=== PATIENT | female | born 1995 | race Caucasian/White ===

== ENCOUNTER 2018-05-22 20:23 | Inpatient (IN) | payer MEDICAID ==
[2018-05-22 21:34] LABS: PLATELET COUNT 241 10^3/uL (150-400)
[2018-05-22] MEDS ORDERED: MAGNESIUM SULF 4 GM/WATER 100 ML IV ONE (21:58)
[2018-05-22] MEDS ORDERED: CALCIUM GLUC 10% 1 GM/10 ML VIAL IVP PRN (21:58)
[2018-05-22] MEDS ORDERED: LR 500 ML IV ONE (22:25)
[2018-05-22] MEDS ORDERED: ceFAZolin 2 GM/DEXTROSE 100 ML IV ONE (22:25)
--- NOTE | 2018-05-22 22:45 | PDGENHP ---
History and Physical - Chief Complaint high blood pressure - History of Present Illness 22 at 37w2d by LMP C/w first trimester US done at [facility]. Here for elevated BPs (called about losing her mucous plug but mentioned high BPs). Went to [facility] ED this morning for a rash on her scalp, was told she had a BP of 180 over ? initially, then her dc paper work had 158/105, 156/ 110 written on it, and it was printed at 10:07 this morning. She relates she was told to keep her OB appointment in 2 days. Good FM, no VB, no LOF. Currently - no VENEGAS, no vis changes, no epigastric pain. Denies drug use in . Had pos THC early in preg. Consents to U tox today. care at [facility] since 15 weeks - first trimester visit was at [facility]. course uncomplicated. Desires repeat C/S. POB: 10/2010 at age 16, had primary LTCS at 41+ weeks, 7#6oz after IOL and intolerance of labor labs: O pos 1 hour gluc 80 before 20 weeks 28 wk GTT 106 11.7/36.2 GBS neg History Information - Allergies/Home Medication List Allergies/Adverse Reactions: No Known Allergies Allergy (Unverified 05/22/18 20:52) I have personally reviewed and updated: family history, medical history, social history, surgical history Past Medical History: hx of depression. obesity - Past Medical History Additional medical history: scoliosis. hx of pp depression - Surgical History Additional surgical history: 2012 low transverse C/S - Family History Additional family history: son with asthma - Social History Smoking Status: Former smoker Alcohol Use: None Drug Use: None Additional social history: FOC not involved - her motherAmee here for support Review of Systems Review of Systems: ROS: 10pt was reviewed & negative except for what was stated in HPI & below Physical Exam Physical Exam: gen - pleasant, gravid, NAD FHR 120 reactive toco - occas ctxn 36.6 18 125 176/120 repeat 144/84, over the past hour - 130-150s / 70-100 Constitutional: no apparent distress, appears nourished, not in pain Eyes: PERRL, anicteric sclera, EOMI Ears, Nose, Mouth, Throat: moist mucous membranes, hearing normal, ears appear normal Cardiovascular: regular rate and rhythym Respiratory: no respiratory distress, no rales or rhonchi, clear to auscultation Gastrointestinal: normoactive bowel sounds, soft, non-tender abdomen, other ( gravid, term, NT) Genitourinary: no bladder fullness Skin: warm, normal color Musculoskeletal: full muscle strength, no muscle tenderness Neurologic: AAOx3, sensation intact bilaterally, other (BLE with brisk 3+ reflexes with 1 beat of clonus bilaterally) Psychiatric: interacting appropriately, not anxious Lymph, Heme, Immunologic: no cervical LAD Lab Data & Imaging Review 05/22/18 21:30 05/22/18 21:30 WBC 11.53 10^3/uL (3.80-9.50) H 05/22/18 21: RBC 4.53 10^6/uL (4.18-5.33) 05/22/18 21: Hgb 11.2 g/dL (12.6-16.3) L 05/22/18 21: Hct 35.5 % (38.0-47.0) L 05/22/18 21: MCV 78.4 fL (81.5-99.8) L 05/22/18 21:30 MCH 24.7 pg (27.9-34.1) L 05/22/18 21: MCHC 31.5 g/dL (32.4-36.7) L 05/22/18 21: RDW 13.9 % (11.5-15.2) 05/22/18 21: Plt Count 241 10^3/uL (150-400) 05/22/18 21: MPV 11.7 fL (8.7-11.7) 05/22/18 21:30 Neut % (Auto) 68.6 % (39.3-74.2) 05/22/18 21: Lymph % (Auto) 20.1 % (15.0-45.0) 05/22/18 21: Larue % (Auto) 9.6 % (4.5-13.0) 05/22/18 21:30 Eos % (Auto) 0.5 % (0.6-7.6) L 05/22/18 21: Baso % (Auto) 0.2 % (0.3-1.7) L 05/22/18 21:30 Nucleat RBC Rel Count 0.0 % (0.0-0.2) 05/22/18 21:30 Absolute Neuts (auto) 7.90 10^3/uL (1.70-6.50) H 05/22/18 21:30 Absolute Lymphs (auto) 2.32 10^3/uL (1.00-3.00) 05/22/18 21:30 Absolute Monos (auto) 1.11 10^3/uL (0.30-0.80) H 05/22/18 21:30 Absolute Eos (auto) 0.06 10^3/uL (0.03-0.40) 05/22/18: Absolute Basos (auto) 0.02 10^3/uL (0.02-0.10) 05/22/18 21: Absolute Nucleated RBC 0.00 10^3/uL (0-0.01) 05/22/18: Immature Gran % 1.0 % (0.0-1.1) 05/22/18: Immature Gran # 0.12 10^3/uL (0.00-0.10) H 05/22/18 21:30 BUN 10 mg/dL (7-23) 05/22/18 21:30 Creatinine 0.5 mg/dL (0.6-1.0) L 05/22/18 21:30 Estimated GFR > 60 05/22/18 21:30 Uric Acid 3.8 mg/dL (2.5-6.8) 05/22/18:30 Total Bilirubin 0.2 mg/dL (0.1-1.4) 05/22/18 21:30 Conjugated Bilirubin 0.2 mg/dL (0.0-0.5) 05/22/18: Unconjugated Bilirubin 0.0 mg/dL (0.0-1.1) 05/22/18 21:30 AST 16 IU/L (14-46) 05/22/18 21:30 ALT 25 IU/L (9-52) 05/22/18 21:30 Lactate Dehydrogenase 455 IU/L (313-618) 05/22/18 21:30 Urine Color YELLOW 05/22/18 20:30 Urine Appearance HAZY 05/22/18 20:30 Urine pH 6.0 (5.0-7.5) 05/22/18 20:30 Ur Specific [place] 1.018 (1.002-1.030) 05/22/18 20:30 Urine Protein NEGATIVE (NEGATIVE) 05/22/18 20:30 Urine Ketones NEGATIVE (NEGATIVE) 05/22/18 20:30 Urine Blood 3+ (NEGATIVE) H 05/22/18 20:30 Urine Nitrate NEGATIVE (NEGATIVE) 05/22/18 20:30 Urine Bilirubin NEGATIVE (NEGATIVE) 05/22/18 20:30 Urine Urobilinogen NEGATIVE EU (0.2-1.0) 05/22/18 20:30 Ur Leukocyte Esterase TRACE (NEGATIVE) H 05/22/18 20:30 Urine RBC 50-182 /hpf (0-3) H 05/22/18 20:30 Urine WBC 10-15 /hpf (0-3) H 05/22/18 20:30 Ur Epithelial Cells 1+ /lpf (NONE-1+) 05/22/18 20:30 Calcium Oxalate Crystal PRESENT /hpf (NONE-1+) 05/22/18 20:30 Urine Mucus TRACE /lpf (NONE-1+) 05/22/18 20:30 Ur Random Creatinine 89.2 mg/dL 05/22/18 20:30 U Random Total Protein 20 mg/dL (0-11) H 05/22/18 20:30 Urine Glucose NEGATIVE (NEGATIVE) 05/22/18 20:30 P/C = 20/89.2 = 0.224 Assessment & Plan Assessment: 22 at 37w2d with gestational HTN with severe features, prior C/S - desires repeat. Plan - Magsulfate for seizure prophylaxis - will administer for 24 hours postoperatively too, with urinary catheter, NPO, bedrest during that time. Written informed consent obtained - will proceed with C/S. Adelina TYLER ALONSO. Megan Ann MD, [facility]
[2018-05-22] MEDS ORDERED: morphINE PF 5 MG/10 ML INJ ONE (22:57)
[2018-05-22] MEDS ORDERED: fentaNYL 100 MCG/2 ML INJ ONE (22:57)
[2018-05-22] MEDS ORDERED: ONDANSETRON 4 MG/2 ML VIAL ONE (22:58)
[2018-05-22] MEDS ORDERED: OXYTOCIN 100 UNITS/10 ML VIAL ONE (22:58)
[2018-05-22] MEDS ORDERED: BUPIVACAINE/DEXTROSE 7.5MG/ML 2 ML SPINAL AMP SP ONE (22:58)
--- NOTE | 2018-05-22 23:11 | PDANEPAE ---
ANE Past Medical History - Pulmonary History Hx Sleep Apnea: No - Chronic Pain History Chronic Pain: No ANE Review of Systems Review of Systems: ANE Patient History - Allergies Allergies/Adverse Reactions: No Known Allergies Allergy (Unverified 05/22/18 20:52) - Smoking Hx Smoking Status: Former smoker - Alcohol Use Alcohol Use: None ANE Labs/Vital Signs - Labs Result Diagrams: 05/22/18 21:30 05/22/18 21:30 - Vital Signs Height: 154.94 cm Weight: 107.955 kg ANE Physical Exam - Airway Neck exam: decreased ROM Mallampati Score: Class 3 Mouth exam: normal dental/mouth exam - Pulmonary Pulmonary: no respiratory distress - Cardiovascular Cardiovascular: regular rate and rhythym - ASA Status ASA Status: III ANE Anesthesia Plan Anesthesia Plan: spinal
[2018-05-22] MEDS: Mag Sulf 500 ML IV SCH (23:35)
[2018-05-23] MEDS ORDERED: MISOPROSTOL 200 MCG TAB ONE (00:17)
[2018-05-23] MEDS ORDERED: AMMONIA AROMATIC 1 EACH AMP IH ONE (00:17)
[2018-05-23] MEDS ORDERED: OXYTOCIN 10 UNIT/ML VIAL ONE (00:17)
[2018-05-23] MEDS ORDERED: fentaNYL 100 MCG/2 ML INJ IVP PRN (00:36)
[2018-05-23] MEDS ORDERED: PHENYLEPHRINE HCL 100 MCG/ML SYR IVP PRN (00:36)
[2018-05-23] MEDS ORDERED: NALOXONE HCL 0.4 MG/ML INJ IVP PRN ×2 (00:36→01:16)
[2018-05-23] MEDS ORDERED: MEPERIDINE 25 MG/0.5 ML AMP IVP PRN (00:36)
[2018-05-23] MEDS ORDERED: ONDANSETRON 4 MG/2 ML VIAL IVP PRN ×2 (00:36)
--- NOTE | 2018-05-23 01:16 | POSTANESTH ---
Post Anesthetic Evaluation Cardiovascular Status: Similar to Pre-Op Cond Respiratory Status: Similar to Pre-op Cond. Level of Consciousness/Mental Status: Alert and Oriented Pain Control: Adequate, Prn Tx Ordered Nausea/Vomiting Control: Adequate, Prn Tx Ordered Complications Possibly Related to Anesthesia: None Noted
--- NOTE | 2018-05-23 01:17 | POSTOPPROG ---
Post Op Note Date of Operation: 05/23/18 Surgeon: Megan Ann [employer] Agent: JEAN-PAUL Vidal Anesthesiologist: Wilman Loomis Anesthesia: Spinal Pre-op Diagnosis: gestational hypertension with severe features Post-op Diagnosis: same Indication: 37w2d wtih gestational hypertension with severe features Procedure: repeat low transverse section Findings: delivery of breech male , normal appearing uterus, tubes and ovaries Inf/Abcess present in the surg proc area at time of surgery?: No EBL: 500-1000 Total fluids administered: 1200 Complications: none
--- NOTE | 2018-05-23 01:20 | OBDEL ---
Info Type: Repeat Presentation at Delivery: Breech L&D Analgesia/Anesthesia Type: Spinal GBS+: No Intrapartum Medications: Ancef 2 gm IV prior to incision Indications for Delivery: Preeclampsia Severe (actually gestational HTN with severe features (proteinuria not in preeclamptic range) Operative Report - Delivery Pre-op Diagnoses: 37w3d, gestational hypertension with severe features Post-op Diagnoses: same History of Prior Section: Yes Number of Prior Sections: 1 Nulliparous Prior to Delivery: No Indications for Prior Section: Non-reas. Status Indications for Current Section: Breech, Elective/Repeat, Other ( Specify) (gestational hypertension with severe features) Procedure: Unscheduled Surgeon: Megan Ann Sign Painter Apprentice: Nguyen Raza Anesthesiologist: Phan Loomis Complications: None Findings: breech presentation, male. Normal appearing uterus, tubes, and ovaries. Some adhesions of omentum to anterior uterine serosa. IV Fluid (ml): 1,200 EBL: 800 Data CHARBEL: 06/10/18 Gestational Age: 37 week(s) and 3 day(s) ICD10 Worksheet Patient Problems: Problems Problem Status Onset Gestational [-induced] hypertension without significant proteinuria, complicating childbirth Acute - ICD10 Problem Qualifiers (1) Gestational [-induced] hypertension without significant proteinuria , complicating childbirth
[2018-05-23] MEDS: KETOROLAC 30 MG/1 ML SDV IVP SCH ×3 (04:32→18:14)
--- NOTE | 2018-05-23 05:52 | GOP ---
[f rep st] OPERATIVE REPORT DATE OF OPERATION: 05/23/2018 SURGEON: Megan Ann MD ORTHOPAEDIC NURSE: JEAN-PAUL Gomez. ANESTHESIA: Spinal. ANESTHESIOLOGIST: Phan Loomis MD. PREOPERATIVE DIAGNOSIS: 1. Gestational hypertension with severe features at 37 weeks and 3 days. 2. Prior section. 3. Breech presentation. POSTOPERATIVE DIAGNOSIS: 1. Gestational hypertension with severe features at 37 weeks and 3 days. 2. Prior section. 3. Breech presentation. PROCEDURE PERFORMED: FINDINGS: Delivery of a breech presentation male infant. Normal-appearing uterus, tubes, and ovaries. There were adhesions of omentum to the anterior left lower uterine serosa. ESTIMATED BLOOD LOSS: 800 mL. INDICATIONS: 22-year-old 3, para 1-0-1-1 female at 37 weeks and 3 days with gestational hypertension with severe features preferring to have an elective repeat section in the setting of delivery being indicated at this time. DESCRIPTION OF PROCEDURE: Written informed consent was obtained from the patient. She was taken to the operating room after receiving her initial magnesium sulfate bolus. A full WHO time out was performed. The magnesium sulfate was then running at 2 g/hour a spinal anesthetic was placed by Dr. Loomis. She was then laid in the dorsal supine position. A urinary catheter was placed in the standard sterile fashion. Her abdomen was then prepared and draped in the standard fashion. A Pfannenstiel skin incision was made and taken down sharply to the fascia. The fascia was nicked in the midline. The fascial incision was extended laterally in a sharp fashion. The fascia was elevated with Baron clamps and the underlying rectus muscles were dissected off bluntly and sharply. The rectus muscles were in the midline. The underlying peritoneum was grasped and elevated and entered sharply. The Leonardo O retractor was placed into the abdomen. The nurse practitioner , Aleida Henry, was present in the operating room at this time. A hysterotomy was made and taken down sharply until the release of clear fluid. The hysterotomy was extended laterally in a blunt fashion. The feet were able to be easily grasped together and delivered through the incision. The was then delivered to the hips. A moist green towel was then placed around the infant hips and the body was delivered to the axilla. Each arm was then delivered by rotating the shoulder anteriorly and sweeping the arm across the chest. body was then elevated and delivery of the vertex occurred easily. The infant was dried and stimulated until one minute had passed, and cord clamping and cutting was performed. The infant was handed to the waiting nurse practitioner. A cord segment was obtained which was later discarded. Cord blood was also obtained. The placenta delivered with the assistance of fundal massage. The uterus was cleared of all clots and debris using a lap sponge x2. The uterus was then exteriorized. The hysterotomy was repaired with 0 Monocryl in a running locked fashion. A 2nd imbricating layer was placed. The uterus was replaced into the abdomen. The gutters were cleaned of all clots and debris. The fascia was closed with 0 PDS in a running fashion using 1 suture. Godwin's fascia was then closed with 3-0 Monocryl in a running fashion. 4-0 Monocryl was used to close the skin. Benzoin and Steri-Strips were then applied followed by a pressure dressing. Sponge, lap, and needle counts were correct x2. TOTAL FLUIDS ADMINISTERED: 1200 mL. URINE OUTPUT: 125 mL. COMPLICATIONS: None. /[id number]/MODL MTDD
[2018-05-23] MEDS: LR 1,000 ML IV SCH ×2 (06:41→18:00)
--- NOTE | 2018-05-23 06:57 | OBPP ---
Progress Note Assessment/Plan: Assessment: 22 POD#1 s/p R-C/S in setting of gestational HTN with severe features. BPs have been stable overnight, good urine output. Plan:Continue with Mag Sulfate until 24 hours post delivery. routine supportive cares. Will allow <50ml ice chips / hour to wet mouth. Megan Ann MD 05/23/18 07:05 Subjective/ Course: 05/23/18 07:07 Pt doing well. Resting comfortably. no VENEGAS, vis changes, epigastric pain. Surgical pain well controlled with Toradol. Objective: 05/22/18 21:30 05/22/18 21:30 Patient ABO/Rh O POSITIVE 05/22/18 21:20 Uric Acid 3.8 mg/dL (2.5-6.8) 05/22/18 21:30 Total Bilirubin 0.2 mg/dL (0.1-1.4) 05/22/18 21:30 Conjugated Bilirubin 0.2 mg/dL (0.0-0.5) 05/22/18 21:30 Unconjugated Bilirubin 0.0 mg/dL (0.0-1.1) 05/22/18 21:30 AST 16 IU/L (14-46) 05/22/18 21:30 ALT 25 IU/L (9-52) 05/22/18 21:30 Lactate Dehydrogenase 455 IU/L (313-618) 05/22/18 21:30 Temp Pulse Resp BP Pulse Ox 37.2 C 18 126/55 H 95 05/23/18 04:30 05/23/18 06:14 05/23/18 06:00 05/23/18 06:30 BP -061/55-81 post op Intake and Output 05/22/18 05/23/18 05/23/18 17:59 05:59 17:59 Output Total 620 Balance -620 Weight 107.955 kg Output: Urine (ml) 620 Catheter 620 hourly urine output since 20 delivery: 125/130/125/140/100 gen - pleasant, NAD CV - RRR chest - CTAB abd - soft, fundus firm at u-1, inc - c/d/I ext - SCDs in place. no calf tenderness, 1+ BLE DTRs, no clonus Uterine Position/Fundal Height: Umbilicus -1 Uterine Tone: Firm
[2018-05-23] MEDS: Mag Sulf 500 ML IV SCH (08:00)
[2018-05-23] MEDS ORDERED: LACTULOSE 20 GM/30 ML UDCUP PO PRN (09:28)
[2018-05-23] MEDS ORDERED: POLYETHYLENE GLYCOL 3350 17 GM PKT PO PRN (09:28)
[2018-05-23] MEDS ORDERED: OXYCODONE/APAP 5/325 TAB PO PRN (09:28)
[2018-05-23] MEDS ORDERED: MAGNESIUM HYDROXIDE 30 ML UDCUP PO PRN (09:28)
[2018-05-23] MEDS ORDERED: SIMETHICONE 80 MG TAB CHEW PO PRN (09:28)
[2018-05-23] MEDS ORDERED: BISACODYL 10 MG SUPP PR PRN (09:28)
--- NOTE | 2018-05-23 09:41 | OBPP ---
Progress Note Assessment/Plan: Assessment: s/p RCS in setting of gestational HTN with severe features POD #0 - pt is stable Plan: Cont MgSO4 x 24 hours - d/c 05/24 around 0030 BPs stable overnight and this morning Urine output good overnight and this am: 35cc at 0700; 50 cc at 0800; 40cc at 0900-will cont to closely monitor; fluids at 125 cc/hr Cont IV Toradol x 24 hrs Cont SCDs while in bed today Encourage IS Will cont <50cc ice chips/hr PIH labs wnl upon admission HCT in am 05/2405/23/18 09:41 Subjective/ Course: 05/23/18 07:07 Pt doing well. Resting comfortably. no VENEGAS, vis changes, epigastric pain. Surgical pain well controlled with Toradol. 05/23/18 09:44 Pt seen and examined. Doing well, feels flushed. Overall pain is well controlled with IV Toradol. Pt denies any HAs, visual changes, RUQ/epigastric pain. Denies any f/c/n/v/CP or SOB. Attempted to breast feed baby boy this morning, will continue to try but may switch to bottle. Objective: 05/22/18 21:30 05/22/18 21:30 Patient ABO/Rh O POSITIVE 05/22/18 21:20 Uric Acid 3.8 mg/dL (2.5-6.8) 05/22/18 21:30 Total Bilirubin 0.2 mg/dL (0.1-1.4) 05/22/18 21:30 Conjugated Bilirubin 0.2 mg/dL (0.0-0.5) 05/22/18 21:30 Unconjugated Bilirubin 0.0 mg/dL (0.0-1.1) 05/22/18 21:30 AST 16 IU/L (14-46) 05/22/18 21:30 ALT 25 IU/L (9-52) 05/22/18 21:30 Lactate Dehydrogenase 455 IU/L (313-618) 05/22/18 21:30 Temp Pulse Resp BP Pulse Ox 37.2 C 18 102/52 L 92 05/23/18 04:30 05/23/18 08:00 05/23/18 09:00 05/23/18 09:10 Uterine Position/Fundal Height: Umbilicus -1 Uterine Tone: Firm Physical Exam - Physical Exam General Appearance: WD/WN, alert, no apparent distress Respiratory: lungs clear, normal breath sounds Cardiac/Chest: regular rate, rhythm Abdomen: hypoactive bowel sounds, soft, incision (C/D/I; dressing in place), dressing (C/D/I without shadowing), other (Appropriate tenderness) Extremities: non-tender, normal inspection (with SCDs), swelling DTR- Lower Extremities: Plantar (R): 1+, Plantar (L): 1+ Skin: normal color, warm/dry Neuro/Psych: alert, normal mood/affect, oriented x 3
--- NOTE | 2018-05-23 15:21 | OBPP ---
Progress Note Assessment/Plan: Assessment: s/p RCS in setting of gestational HTN with severe features POD #0 - pt is stable Plan: UO was low at 28 cc (1300) and concentrated so IVFs increased to 150 cc/hr then UO was 34 cc (1400) and 40 cc (1500); will cont to closely monitor Pt feeling pressure in head; she has not slept all day; denies any other symptoms such as HAs, visual changes ur RUQ Will check Mg level now BPs remain stable Cont current management 05/23/18 15:15 Subjective/ Course: 05/23/18 07:07 Pt doing well. Resting comfortably. no VENEGAS, vis changes, epigastric pain. Surgical pain well controlled with Toradol. 05/23/18 09:44 Pt seen and examined. Doing well, feels flushed. Overall pain is well controlled with IV Toradol. Pt denies any HAs, visual changes, RUQ/epigastric pain. Denies any f/c/n/v/CP or SOB. Attempted to breast feed baby boy this morning, will continue to try but may switch to bottle. 05/23/18 15:21 Pt feeling pressure in head; she has not slept all day and now has visitors. She denies any other symptoms such as HAs, visual changes or RUQ pain. She has bruising on L lower leg from swelling and SCDs-they were removed. No f/c/n/v/CP or SOB. Objective: 05/22/18 21:30 05/22/18 21:30 Patient ABO/Rh O POSITIVE 05/22/18 21:20 Uric Acid 3.8 mg/dL (2.5-6.8) 05/22/18 21:30 Total Bilirubin 0.2 mg/dL (0.1-1.4) 05/22/18 21:30 Conjugated Bilirubin 0.2 mg/dL (0.0-0.5) 05/22/18 21:30 Unconjugated Bilirubin 0.0 mg/dL (0.0-1.1) 05/22/18 21:30 AST 16 IU/L (14-46) 05/22/18 21:30 ALT 25 IU/L (9-52) 05/22/18 21:30 Lactate Dehydrogenase 455 IU/L (313-618) 05/22/18 21:30 Temp Pulse Resp BP Pulse Ox 36.6 C 18 109/48 L 93 05/23/18 14:00 05/23/18 15:00 05/23/18 14:02 05/23/18 14:15 Physical Exam - Physical Exam General Appearance: WD/WN, alert, no apparent distress Respiratory: lungs clear, normal breath sounds Cardiac/Chest: regular rate, rhythm Extremities: non-tender, normal inspection (mild ecchymosis L lower leg), pedal edema, swelling DTR- Lower Extremities: Plantar (R): 1+, Plantar (L): 1+ Skin: normal color, warm/dry Neuro/Psych: alert, normal mood/affect, oriented x 3
[2018-05-23] MEDS: IBUPROFEN 600 MG TAB PO SCH (18:34)
[2018-05-23] MEDS: ACETAMINOPHEN 325 MG TAB PO SCH ×2 (18:34→18:35)
[2018-05-24] MEDS ORDERED: KETOROLAC 30 MG/1 ML SDV IVP SCH (00:45)
[2018-05-24] MEDS: SENNOSIDES/DOCUSATE SODIUM TAB PO SCH ×2 (03:52→09:05)
[2018-05-24] MEDS: ACETAMINOPHEN 325 MG TAB PO SCH ×4 (03:53→18:18)
[2018-05-24] MEDS: IBUPROFEN 600 MG TAB PO SCH ×4 (06:02→18:18)
[2018-05-24] MEDS: KETOROLAC 30 MG/1 ML SDV IVP SCH (06:03)
--- NOTE | 2018-05-24 08:22 | PDPAINCON ---
Pain Management Consultation Patient referred by : Seth - Subjective Pain at rest (/10): 0 Pain with activity (/10): 3 Pain is: low, well controlled Side effects include: itchiness Activity: unable to ambulate (pt. was on Mg until recently. Ready to start ambulating.) - Objective Technique: spinal opioid Catheter site: clean, dry, intact (redness at needle site) Sensory and motor exam: block has resolved, no apparent ill effects Vital signs: stable - Assessment/Plan Assessment/Plan: pain well-controlled, continue current mgmt Additional comments: No residual weakness/numbness. No c/o headache or visual difficulties.
[2018-05-24] MEDS: FERRO-SEQUELS 65 MG TAB.ER PO SCH (09:05)
--- NOTE | 2018-05-24 11:56 | OBPP ---
Progress Note Assessment/Plan: Assessment: POD 1 1/2 from [facility] anemia -on iron preeclampsia - s/p 24 hr of pp magnesium sulfate b/p normal, all labs normal on admit asymptomatic Plan: routine post op care watch b/p for worsening 05/24/18 11:52 Subjective/ Course: 05/23/18 07:07 Pt doing well. Resting comfortably. no VENEGAS, vis changes, epigastric pain. Surgical pain well controlled with Toradol. 05/23/18 09:44 Pt seen and examined. Doing well, feels flushed. Overall pain is well controlled with IV Toradol. Pt denies any HAs, visual changes, RUQ/epigastric pain. Denies any f/c/n/v/CP or SOB. Attempted to breast feed baby boy this morning, will continue to try but may switch to bottle. 05/23/18 15:21 Pt feeling pressure in head; she has not slept all day and now has visitors. She denies any other symptoms such as HAs, visual changes or RUQ pain. She has bruising on L lower leg from swelling and SCDs-they were removed. No f/c/n/v/CP or SOB. 05/24/18 11:54 Pt doing well. feels better off magnesium - head less 'cloudy'. no nausea and primo reg diet. urinating fine. ambulating well - feels burning on left angle but only on ibu/tyl. bottle feeding and rec wearing tight bra Objective: 05/24/18 07:25 05/22/18 21:30 Patient ABO/Rh O POSITIVE 05/22/18 21:20 Uric Acid 3.8 mg/dL (2.5-6.8) 05/22/18 21:30 Total Bilirubin 0.2 mg/dL (0.1-1.4) 05/22/18 21:30 Conjugated Bilirubin 0.2 mg/dL (0.0-0.5) 05/22/18 21:30 Unconjugated Bilirubin 0.0 mg/dL (0.0-1.1) 05/22/18 21:30 AST 16 IU/L (14-46) 05/22/18 21:30 ALT 25 IU/L (9-52) 05/22/18 21:30 Lactate Dehydrogenase 455 IU/L (313-618) 05/22/18 21:30 Temp Pulse Resp BP Pulse Ox 36.4 C 87 16 116/71 96 05/24/18 08:27 05/24/18 08:27 05/24/18 08:27 05/24/18 08:27 05/24/18 08:27 Uterine Position/Fundal Height: Umbilicus -2 Uterine Tone: Firm Physical Exam - Physical Exam Abdomen: non-tender (approp post op tenderness), soft, incision (steristrips in place - some reddish drainage soaked onto midline steristrips. not active --no erythema) Extremities: non-tender, pedal edema (moderate) Skin: normal color, warm/dry Neuro/Psych: alert, normal mood/affect
[2018-05-24] MEDS: oxyCODONE IR 5 MG TAB PO PRN ×2 (14:50→21:20)
[2018-05-25] MEDS: IBUPROFEN 600 MG TAB PO SCH ×4 (00:21→18:26)
[2018-05-25] MEDS: ACETAMINOPHEN 325 MG TAB PO SCH ×4 (00:21→18:26)
[2018-05-25] MEDS: SENNOSIDES/DOCUSATE SODIUM TAB PO SCH ×3 (00:40→21:06)
[2018-05-25] MEDS: FERRO-SEQUELS 65 MG TAB.ER PO SCH (10:03)
--- NOTE | 2018-05-25 13:21 | OBPP ---
Progress Note Assessment/Plan: Assessment: POD2 s/p from RCS - performed due to new dx of pre-eclampsia with severe features. Now s/p 24 hrs of PP magnesium sulfate. anemia -on iron preeclampsia - s/p 24 hr of pp magnesium sulfate, assymptomatic BPs generally improved but till getting some mild range BPs this AM - 155/99. all labs normal on admit Recommended observation until tomorrow - if pressures remain elevated will start labetalol Likely home tomorrow 05/25/18 16:09 Subjective/ Course: Doing well - feeling good. Continues to deny s/sx of PIH. BF going well but didn't get much sleep last night. Objective: 05/24/18 07:25 05/22/18 21:30 Patient ABO/Rh O POSITIVE 05/22/18 21:20 Uric Acid 3.8 mg/dL (2.5-6.8) 05/22/18 21:30 Total Bilirubin 0.2 mg/dL (0.1-1.4) 05/22/18 21:30 Conjugated Bilirubin 0.2 mg/dL (0.0-0.5) 05/22/18 21:30 Unconjugated Bilirubin 0.0 mg/dL (0.0-1.1) 05/22/18 21:30 AST 16 IU/L (14-46) 05/22/18 21:30 ALT 25 IU/L (9-52) 05/22/18 21:30 Lactate Dehydrogenase 455 IU/L (313-618) 05/22/18 21:30 Temp Pulse Resp BP Pulse Ox 36.8 C 80 18 144/96 H 95 05/25/18 12:00 05/25/18 12:00 05/25/18 12:00 05/25/18 12:00 05/25/18 12:00 Uterine Position/Fundal Height: At Umbilicus Uterine Tone: Firm Physical Exam - Physical Exam Abdomen: incision (CDI with steri's - dried blood at middle aspect of incision)
[2018-05-25] MEDS: LABETALOL HCL 200 MG TAB PO SCH ×2 (16:42→21:20)
[2018-05-26] MEDS: IBUPROFEN 600 MG TAB PO SCH ×3 (00:30→12:10)
[2018-05-26] MEDS: ACETAMINOPHEN 325 MG TAB PO SCH ×3 (00:30→12:10)
[2018-05-26] MEDS: LABETALOL HCL 200 MG TAB PO SCH (09:11)
[2018-05-26] MEDS: FERRO-SEQUELS 65 MG TAB.ER PO SCH (09:11)
[2018-05-26] MEDS: SENNOSIDES/DOCUSATE SODIUM TAB PO SCH (09:11)
[2018-05-26 10:20] VITALS: BP 140/98
--- NOTE | 2018-05-26 12:03 | OBPP ---
Progress Note Assessment/Plan: Assessment: POD [address] [facility] anemia -on iron preeclampsia - borderline b/p remain and on labetolol great post op pain management Plan: routine post op care, d/c home 05/24/18 11:52 05/26/18 11:46 Subjective/ Course: Doing well - feeling good. Continues to deny s/sx of PIH. BF going well but didn't get much sleep last night. 05/26/18 11:48 Pt doing really well. pain managed with ibu/tyl. urinating fine.. bld is light - had small clot after sleeping. bottle feeding and not bothered by engorgement. discussed current blood pressures. no drainage from incision. ready for d/c Objective: 05/24/18 07:25 05/22/18 21:30 Patient ABO/Rh O POSITIVE 05/22/18 21:20 Uric Acid 3.8 mg/dL (2.5-6.8) 05/22/18 21:30 Total Bilirubin 0.2 mg/dL (0.1-1.4) 05/22/18 21:30 Conjugated Bilirubin 0.2 mg/dL (0.0-0.5) 05/22/18 21:30 Unconjugated Bilirubin 0.0 mg/dL (0.0-1.1) 05/22/18 21:30 AST 16 IU/L (14-46) 05/22/18 21:30 ALT 25 IU/L (9-52) 05/22/18 21:30 Lactate Dehydrogenase 455 IU/L (313-618) 05/22/18 21:30 Temp Pulse Resp BP Pulse Ox 36.7 C 98 17 140/98 H 94 05/26/18 10:20 05/26/18 10:20 05/26/18 10:20 05/26/18 10:20 05/26/18 10:20 Uterine Position/Fundal Height: Umbilicus -1 Uterine Tone: Firm Physical Exam - Physical Exam Abdomen: non-tender (minimal tenderness), soft, incision (old discharge on steristrips. no active drainage. no erythema) Extremities: non-tender, pedal edema (mild) Skin: normal color, warm/dry Neuro/Psych: alert, normal mood/affect
--- NOTE | 2018-05-26 12:08 | OBGCSDC ---
General Delivery Information - General Info : 3 Para: 2 Abortions: 1 Type: Repeat L&D Analgesia/Anesthesia Type: Spinal Admission Date: 05/23/18 Labs: Patient ABO/Rh O POSITIVE 05/22/18 21:20 Hct 30.5 % (38.0-47.0) L 05/24/18 07:25 - Hospital Course : Doing well - feeling good. Continues to deny s/sx of PIH. BF going well but didn't get much sleep last night. 05/26/18 11:48 Pt doing really well. pain managed with ibu/tyl. urinating fine.. bld is light - had small clot after sleeping. bottle feeding and not bothered by engorgement. discussed current blood pressures. no drainage from incision. ready for d/c - Delivery Providers Surgeon: Megan Ann Information Services Consultant: Nguyen Raza Anesthesiologist: Phan Loomis - Delivery Number of Prior Sections: 1 Indications for Current Section: Breech, Elective/Repeat, Other ( Specify) (gestational hypertension with severe features) Surgical Procedures: Unscheduled Intra-op Complications: None EBL: 800 Data CHARBEL: 06/10/18 Gestational Age: 37 week(s) and 6 day(s) Brooks Delivery Date: 05/23/18 Delivery Time: 00:21 Sex of : Male Weight (gm): 3190 g Score (1 Min): 8 Score (5 Min): 9 Discharge Information - Discharge Information Prescriptions: Labetalol HCl [Trandate 200 mg (*)] 200 mg PO BID #60 tab Condition: Good Instruction/Follow Up: See Instruction Sheet, Two Weeks (with Alisha Ann, and 2-3 wks with therapist.), Six Weeks (with Alisha Ann)
== END 2018-05-26 12:27 | disposition home or self-care (01) | DRG 540 ==
LOC: FLD 20:23 → OBSVTOIN 05-23 10:47 → FOB 05-24 09:20
PROVIDERS: ADMIT Hospitalist; ATTEND Hospitalist
PROC: 10D00Z1 Extraction of Products of Conception, Low, Open Approach (ICD-10-PCS; principal; 2018-05-23)
DX: O14.13 Severe pre-eclampsia, third trimester (principal); O99.355 Diseases of the nervous system complicating the puerperium; Z37.0 Single live birth; G89.18 Other acute postprocedural pain; O34.211 Maternal care for low transverse scar from previous cesarean delivery; Z3A.37 37 weeks gestation of pregnancy; O32.1XX0 Maternal care for breech presentation, not applicable or unspecified
CPT/HCPCS: 80307; G0480; J0610; J0690; J1200; J1885; J2274; J2405; J2590; J3010; J3475